=== PATIENT | male | born 1955 | race Caucasian/White ===

== ENCOUNTER 2024-11-23 23:16 | Inpatient (IN) | payer OTHER, MEDICARE ==
[2024-11-23] MEDS ORDERED: ONDANSETRON 4 MG/2 ML VIAL ONE (23:35)
[2024-11-23] MEDS ORDERED: MORPHINE 4 MG/ML SYR ONE (23:36)
[2024-11-23] MEDS ORDERED: HYDROMORPHONE HCL 1 MG/ML INJ ONE (23:49)
[2024-11-23 23:51] LABS: Absolute Lymphocytes (CBC) 3.5 K/uL (0.7-4.9); Hematocrit 45.8 % (39.6-49.0); Hemoglobin 15.0 g/dL (13.6-17.9); MCH 28.7 pg (27.0-35.0); MCHC 32.7 g/dL (32.0-36.0); MCV 87.7 fL (80-100); MPV 7.7 fL (7.6-11.3); Nucleated RBC Absolute Count 0.0 (0-0); Nucleated Red Blood Cells % 0.0 % (0-0); RBC Red Blood Cell Count 5.23 M/uL (4.33-5.43); White Blood Count 11.50 thou/uL (4.3-10.9)
[2024-11-24 00:14] LABS: ALT/SGPT 31.0 U/L (16-61); AST/SGOT 27.0 U/L (15-37); Albumin 3.5 g/dL (3.4-5.0); Albumin/Globulin Ratio 0.8 (1.1-1.8); Alkaline Phosphatase 118.0 U/L (45-117); Anion Gap 7.8 mEq/L (5.0-15.0); BUN Blood Urea Nitrogen 19.0 mg/dL (7-18); Globulin 4.2 g/dL (2.3-3.5); Glucose Level 142.0 mg/dL (74-106); Lipase 81.0 U/L (13-75); Potassium 3.8 mEq/L (3.5-5.1); Troponin High Sensitivity 6.4 pg/mL (<58.9)
--- NOTE | 2024-11-24 00:41 | RAD REPORT ---
EXAM: CT Angiography Chest, Abdomen and Pelvis With Intravenous Contrast CLINICAL HISTORY: The patient is 69 years old and is Male; ABD PAIN; Bed Name: 6; TECHNIQUE: Axial computed tomographic angiography images of the chest, abdomen and pelvis with intr avenous contrast. Sagittal and coronal reformatted images were created and reviewed. This CT exam was performed using one or more of the following dose reduction techniques: automated exposure control, adjustment of the mA and/or kV according to patient size, and/or use of iterative reconstruction technique. MIP reconstructed images were created and reviewed. COMPARISON: CT angiogram chest January 15, 2024 FINDINGS: VASCULATURE: Aorta: No aortic aneurysm or dissection. Mild atherosclerotic plaque of the thoracic aorta. Moder ate atherosclerotic calcification of the infrarenal aorta. Pulmonary arteries: No pulmonary embolism is identified. Great vessels of aortic arch: No acute findings. No dissection. No arterial occlusion or sign ificant stenosis. Celiac trunk and mesenteric arteries: No acute findings. No occlusion or significant stenosis. Renal arteries: No acute findings. No occlusion or significant stenosis. Iliac arteries: No acute findings. No occlusion or significant stenosis. CHEST: Lungs and pleural spaces: Bilateral subpleural reticulation. Mild scattered bronchiectasis. No ho neycombing. No consolidation. No pleural effusion or pneumothorax. Heart: Three-vessel coronary artery calcification. No cardiomegaly. No pericardial effusion. Mediastinum: Small hiatal hernia. ABDOMEN: Liver: No mass. Gallbladder and bile ducts: No calcified stones. No ductal dilation. Pancreas: No mass, inflammation or ductal dilation. Spleen: No splenomegaly. Adrenals: Homogeneous nodule within the right adrenal gland, measuring 7 mm x 12 mm, 31 Hounsfiel d units in density. (7 Hounsfield units on the noncontrast CT from December 2023.) Kidneys and ureters: 3 mm calyceal stone lower pole right kidney. No hydronephrosis. No ureteral stone. No solid mass. Stomach and bowel: Partial gastrectomy. PELVIS: Appendix: Normal appendix. Bladder: Mildly filled urinary bladder. Smudginess of the fat adjacent to the bladder. Reproductive: Within normal limits. CHEST, ABDOMEN and PELVIS: Intraperitoneal space: No abnormal air or fluid. Bones/joints: L2-3 disc space narrowing and endplate subchondral sclerosis and cystic change. Pos terior endplate osteophytes. Bilateral facet arthropathy. Moderate central canal stenosis. Soft tissues: Normal soft tissues of the body wall. IMPRESSION: 1. No aortic aneurysm or dissection. 2. No pulmonary embolism. 3. Three-vessel coronary artery calcification. 4. Pulmonary fibrosis. 5. Small hiatal hernia. 6. Partial gastrectomy. 7. Smudginess of the fat adjacent to the mildly filled urinary bladder. Correlate clinically for cy stitis. 8. L2-3 degenerative disc disease and facet arthropathy. Moderate central canal stenosis. 9. Stable 12 mm right adrenal adenoma. No follow-up imaging recommended. 10. 3 mm calyceal stone lower pole right kidney. No hydronephrosis. No ureteral stone. Electronically signed by: Yolanda Braxton MD 11/24/2024 12:36 AM CDT RP Due to temporary technical issues with the PACS/[employer] reporting system, reports are being mercy d by the in-house radiologist without review as a courtesy to ensure prompt reporting the interpreting radiologist is fully responsible for the content of the report. Transcribed Date/Time: 11/24/2024 12:41 AM
--- NOTE | 2024-11-24 00:51 | EDPHYS ---
Physician Documentation [facility] Name: Ruslan Joaquin Age: 69 yrs Sex: Male : 1955 Arrival Date: 11/23/2024 Time: 23:16 Bed 6 Private MD: ED Physician Luis Reece HPI: 11/23 23:55 This 69 yrs old Male presents to ER via Ambulatory with complaints of Abdominal Pain, kb Back Pain. 23:55 Patient is a 69-year-old male who presents for diffuse abdominal pain that radiates to kb the back that started 2 hours prior to arrival. Reports nausea and vomiting. Denies shortness of breath or chest pain. Patient is diaphoretic and in obvious pain.. Historical: - Allergies: 23:36 No Known Allergies; cp4 - Immunization history:: Adult Immunizations up to date. - Infectious Disease History:: Denies. - Social history:: Smoking status: Patient denies any tobacco usage or history of. ROS: 23:55 Constitutional: As per HPI kb Exam: 23:55 Head/Face: Normocephalic, atraumatic. ENT: Moist Mucous membranes Cardiovascular: kb Regular rate Respiratory: Respirations even and unlabored. No increased work of breathing. Talking in full sentences Skin: Warm, dry with normal turgor. Normal color. MS/ Extremity: Pulses equal, no cyanosis. Neurovascular intact. Full, normal range of motion. Neuro: Awake and alert, GCS 15, oriented to person, place, time, and situation. 23:55 Constitutional: The patient appears alert, awake, diaphoretic, in obvious pain, 23:55 Abdomen/GI: Inspection: obese Bowel sounds: normal, Palpation: soft, in all quadrants, mild abdominal tenderness, in all quadrants, 11/24 00:14 ECG was reviewed by the Attending Physician. kb 01:50 Constitutional: This is a well developed, well nourished patient who is awake, alert, sp4 and in no acute distress. Head/Face: Normocephalic, atraumatic. Eyes: Pupils equal round and reactive to light, extra-ocular motions intact. Lids and lashes normal. Conjunctiva and sclera are not injected. Cornea within normal limits. Periorbital areas with no swelling, redness, or edema. ENT: Nares patent. No nasal discharge, no septal abnormalities noted. Tympanic membranes are normal and external auditory canals are clear. Oropharynx with no redness, swelling, or masses, exudates, or evidence of obstruction, uvula midline. Mucous membranes moist. Neck: Trachea midline, no thyromegaly or masses palpated, and no cervical lymphadenopathy. Supple, full range of motion without nuchal rigidity, or vertebral point tenderness. Chest/axilla: Normal chest wall appearance and motion. Nontender with no deformity. No lesions are appreciated. Cardiovascular: Regular rate and rhythm with a normal S1 and S2. No gallops, murmurs, or rubs. No pulse deficits. Respiratory: Lungs have equal breath sounds bilaterally, clear to auscultation and percussion. No rales, rhonchi or wheezes noted. No increased work of breathing, no retractions or nasal flaring. Abdomen/GI: Soft, with normal bowel sounds. No distension or tympany. No guarding or rebound. No evidence of tenderness throughout. Back: No spinal tenderness. No costovertebral tenderness. Skin: Warm, dry with normal turgor. Normal color with no rashes, no lesions, and no evidence of cellulitis. MS/ Extremity: Pulses equal, no cyanosis. Neurovascular intact. Full, normal range of motion. Neuro: Awake and alert, GCS 15, oriented to person, place, time, and situation. Cranial nerves II-XII grossly intact. Motor strength 5/5 in all extremities. Sensory grossly intact. Psych: Awake, alert, with orientation to person, place and time. Behavior, mood, and affect are within normal limits 01:50 ECG was reviewed by the Attending Physician. Will repeat EKG 0 138 normal sinus rhythm rate 77, normal intervals, no ST elevation or depression, no axis, no ectopic beats, overall normal EKG. Normal axis Vital Signs: 11/23 23:33 BP 182 / 110; Pulse 84; Resp 20; Temp 97.4; Pulse Ox 99% ; Weight 127.01 kg; Height 6 cp4 ft. 0 in. ; Pain 10/10; 23:47 BP 158 / 87; Pulse 80; Resp 20; Pulse Ox 100% on R/A; kd3 11/24 00:24 BP 146 / 73; Pulse 79; Resp 18; Pulse Ox 98% on R/A; kd3 01:30 BP 162 / 96; Pulse 81; Resp 18; Pulse Ox 95% ; zm 02:30 BP 168 / 94; Pulse 78; Resp 18; Pulse Ox 99% ; zm 03:30 BP 159 / 87; Pulse 74; Resp 18; Pulse Ox 98% ; zm 04:49 BP 171 / 96; Pulse 78; Resp 18; Pulse Ox 98% ; cp4 11/23 23:33 Body Mass Index 37.97 (127.01 kg, 182.88 cm) cp4 11/23 23:33 Pain Scale: Adult cp4 [place] Coma Score: 01:50 Eye Response: spontaneous(4). Motor Response: obeys commands(6). Verbal Response: sp4 oriented(5). Total: 15. MDM: 11/23 23:18 Medical Screening Exam initiated kb 23:56 Data reviewed: vital signs, nurses notes. Historians other than the Patient: nikole Spouse/Significant Other: . 11/24 00:48 Differential diagnosis: AAA, cholecystitis, Cholelithiasis, myocardia ischemia or kb infarction, non-specific abd pain, pancreatitis, Ureterolithiasis, urinary tract infection. Consideration of Admission/Observation Patient was admitted/placed on observation. Escalation of care including admission/observation considered. Management of patient was discussed with the following: Hospitalist: JANAK Benitez requests CT head prior to admission. Counseling: I had a detailed discussion with the patient and/or guardian regarding the historical points, exam findings, and any diagnostic results supporting the discharge/admit diagnosis, lab results, radiology results, the need for further work-up and treatment in the hospital. ED course: Will admit for observation due to pt's presentation. Pt's symptoms have improved after treatment. . ED course: Dr Reece to review CT head and UA prior to admission. 01:29 ED course: FINDINGS: VASCULATURE: Aorta: No aortic aneurysm or dissection. Mild sp4 atherosclerotic plaque of the thoracic aorta. Moderate atherosclerotic calcification of the infrarenal aorta. Pulmonary arteries: No pulmonary embolism is identified. Great vessels of aortic arch: No acute findings. No dissection. No arterial occlusion or significant stenosis. Celiac trunk and mesenteric arteries: No acute findings. No occlusion or significant stenosis. Renal arteries: No acute findings. No occlusion or significant stenosis. Iliac arteries: No acute findings. No occlusion or significant stenosis. CHEST: Lungs and pleural spaces: Bilateral subpleural reticulation. Mild scattered bronchiectasis. No honeycombing. No consolidation. No pleural effusion or pneumothorax. Heart: Three-vessel coronary artery calcification. No cardiomegaly. No pericardial effusion. Mediastinum: Small hiatal hernia. ABDOMEN: Liver: No mass. Gallbladder and bile ducts: No calcified stones. No ductal dilation. Pancreas: No mass, inflammation or ductal dilation. Spleen: No splenomegaly. Adrenals: Homogeneous nodule within the right adrenal gland, measuring 7 mm x 12 mm, 31 Hounsfield units in density. (7 Hounsfield units on the noncontrast CT from December 2023.) Kidneys and ureters: 3 mm calyceal stone lower pole right kidney. No hydronephrosis. No ureteral stone. No solid mass. Stomach and bowel: Partial gastrectomy. PELVIS: Appendix: Normal appendix. Bladder: Mildly filled urinary bladder. Smudginess of the fat adjacent to the bladder. Reproductive: Within normal limits. CHEST, ABDOMEN and PELVIS: Intraperitoneal space: No abnormal air or fluid. Bones/joints: L2-3 disc space narrowing and endplate subchondral sclerosis and cystic change. Posterior endplate osteophytes. Bilateral facet arthropathy. Moderate central canal stenosis. Soft tissues: Normal soft tissues of the body wall. IMPRESSION: 1. No aortic aneurysm or dissection. 2. No pulmonary embolism. 3. Three-vessel coronary artery calcification. 4. Pulmonary fibrosis. 5. Small hiatal hernia. 6. Partial gastrectomy. 7. Smudginess of the fat adjacent to the mildly filled urinary bladder. Correlate clinically for cystitis. 8. L2-3 degenerative disc disease and facet arthropathy. Moderate central canal stenosis. 9. Stable 12 mm right adrenal adenoma. No follow-up imaging recommended. 10. 3 mm calyceal stone lower pole right kidney. No hydronephrosis. No ureteral stone. . 02:45 ED course: FINDINGS: Generalized parenchymal volume loss. No hydrocephalus. No midline sp4 shift. The basal cisterns are patent. No abnormal extra axial collection. No acute intracranial hemorrhage or developing territorial infarct. Preserved storey-white differentiation. Scattered chronic microangiopathic ischemic white matter changes. Orbital contents are unremarkable. Small left maxillary sinus air fluid level. The mastoid air cells are well pneumatized. No acute calvarial abnormality. IMPRESSION: 1. No acute intracranial pathology. 2. Small left maxillary sinus air fluid level. Correlate for acute sinusitis. Electronically signed by: Jt Menon MD 11/24/2024 02:42 AM CDT RP. 11/23 23:34 Order name: CBC with Diff; Complete Time: 00:01 kb 11/23 23:34 Order name: CMP; Complete Time: 00:28 kb 11/23 23:34 Order name: Lipase; Complete Time: 00:28 kb 11/23 23:34 Order name: Troponin HS; Complete Time: 00:28 kb 11/23 23:58 Order name: CREATININE WHOLE BLOOD; Complete Time: 00:01 EDMS 11/24 00:40 Order name: UA Rfx Evan Cult if indicated; Complete Time: 01:27 kb 11/24 01:18 Order name: Troponin High Sensitivity; Complete Time: 02:43 kd3 11/24 01:37 Order name: Lipase; Complete Time: 02:43 sp4 11/24 01:37 Order name: Lactate w/ 2H reflex if indic.; Complete Time: 02:43 sp4 11/24 03:53 Order name: Troponin High Sensitivity EDMS 11/24 03:53 Order name: CBC with Automated Diff EDMS 11/24 03:53 Order name: CBC with Automated Diff EDMS 11/24 03:53 Order name: Comprehensive Metabolic Panel EDMS 11/24 03:53 Order name: Comprehensive Metabolic Panel EDMS 11/24 03:53 Order name: Magnesium EDMS 11/24 03:53 Order name: Magnesium EDMS 11/24 03:54 Order name: Lipase EDMS 11/24 03:54 Order name: Lipase EDMS 11/23 23:34 Order name: CT Aorta for Dissection kb 11/24 00:47 Order name: CT Head Brain wo Cont kb 11/23 23:34 Order name: IV Saline Lock; Complete Time: 23:44 kb 11/23 23:34 Order name: Labs collected and sent; Complete Time: 23:44 kb 11/23 23:34 Order name: Cardiac monitoring; Complete Time: 00:11 kb 11/23 23:34 Order name: EKG - Nurse/Tech; Complete Time: 00:11 kb 11/23 23:34 Order name: O2 Per Protocol; Complete Time: 23:44 kb 11/23 23:34 Order name: O2 Sat Monitoring; Complete Time: 23:44 kb 11/24 01:18 Order name: EKG - Nurse/Tech; Complete Time: 01:37 kd3 EC:14 Rate is 81 beats/min. Rhythm is regular. QRS [place] is Normal. [place] interval is prolonged kb at 208 msec. QRS interval is normal at 110 msec. QT interval is normal at 450 msec. Administered Medications: 11/23 23:44 Drug: Ondansetron IVP 4 mg IVP once; over 2 minutes Route: IVP; Site: left antecubital; kd3 11/24 03:02 Follow up: Response: No adverse reaction zm 11/23 23:44 Drug: morphine IVP or IV 4 mg IVP once over 4 mins Route: IVP; Infused Over: 4 mins; kd3 Site: left antecubital; 11/24 03:02 Follow up: Response: No adverse reaction zm 11/23 23:52 Drug: HYDROmorphone IVP 1 mg IVP once Route: IVP; Site: left antecubital; kd3 11/24 03:02 Follow up: Response: No adverse reaction; Pain is decreased zm 01:37 Drug: HYDROmorphone IVP 1 mg IVP once Route: IVP; Site: left antecubital; kd3 03:00 Follow up: Response: No adverse reaction; Pain is decreased cp4 03:01 Follow up: Response: No adverse reaction; Pain is decreased zm 02:56 Drug: metoCLOPramide IVP 10 mg IVP once; over 1 to 2 minutes Route: IVP; Site: left cp4 antecubital; 03:01 Follow up: Response: No adverse reaction zm 03:44 Drug: HYDROmorphone IVP 1 mg IVP once Route: IVP; Site: left antecubital; cp4 04:02 Follow up: Response: No adverse reaction; Pain is decreased cp4 03:44 Drug: Ondansetron IVP 4 mg IVP once; over 2 minutes Route: IVP; Site: left antecubital; cp4 04:03 Follow up: Response: No adverse reaction; Nausea is decreased cp4 Disposition: 02:50 Co-signature as Attending Physician, Luis Reece MD I agree with the assessment sp4 and plan of care. I reviewed the patient's care provided by Advanced Practice Provider \T\ agree w/ the diagnosis \T\ care plan. I personally saw the pt \T\ performed a substantive portion of the visit, incldng all aspects of the (History/Exam/Medical Decision Making). Disposition Summary: 11/24/24 00:50 Hospitalization Ordered Notes: Hospitalization Status: Observation kb Provider: Curtis Mendez Location: Telemetry/MedSurg (observation) kb Condition: Stable kb Problem: new kb Symptoms: are unchanged kb Bed/Room Type: Standard Room Assignment: 431(11/24/24 03:53) rv1 Diagnosis - Abdominal pain, Generalized kb - Acute pelvic pain, acute abdominal and back pain, acute diaphoresis, near syncopal sp4 episode Forms: - Medication Reconciliation Form kb - SBAR form kb - Leadership Thank You Letter kb Signatures: Dispatcher [employer] EDLA Ayde Urrutia, ABBI-C ABBI-Tamiko Renae RN RN kd3 Carmella Barroso rv1 Luis Reece MD MD sp4 Mariam Landrum Zaina RN zm Corrections: (The following items were deleted from the chart) 11/23 23:34 23:34 Angio Aorta For Dissection+CT.RAD.BRZ ordered. EDLA EDLA 11/24 03:53 00:50 kb rv1
--- NOTE | 2024-11-24 00:51 | ER ---
Nurse's Notes [facility] Name: Ruslan Joaquin Age: 69 yrs Sex: Male : 1955 Arrival Date: 11/23/2024 Time: 23:16 Bed 6 Private MD: Diagnosis: Abdominal pain, Generalized;Acute pelvic pain, acute abdominal and back pain, acute diaphoresis, near syncopal episode Presentation: 11/23 23:33 Chief complaint: Patient states: lower abdominal and back pain that started 2 hours cp4 ago. Reports nausea and vomiting. Coronavirus screen: Vaccine status: Patient reports receiving the 2nd dose of the covid vaccine. Client denies travel out of the [place] in the last 14 days. At this time, the client does not indicate any symptoms associated with coronavirus-19. Ebola Screen: Patient negative for fever greater than or equal to 101.5 degrees Fahrenheit, and additional compatible Ebola Virus Disease symptoms Patient denies exposure to infectious person. Patient denies travel to an Ebola-affected area in the 21 days before illness onset. No symptoms or risks identified at this time. Initial Sepsis Screen: Does the patient meet any 2 criteria? No. Patient's initial sepsis screen is negative. Does the patient have a suspected source of infection? No. Patient's initial sepsis screen is negative. Risk Assessment: Do you want to hurt yourself or someone else? Patient reports no desire to harm self or others. Onset of symptoms was November 23, 2024 at 21:30. 23:33 Method Of Arrival: Ambulatory cp4 23:33 Acuity: MINDY 2 cp4 Triage Assessment: 23:36 General: Appears in no apparent distress. uncomfortable, Behavior is calm, cooperative, cp4 appropriate for age. Pain: Complains of pain in back and abdomen Pain does not radiate. Pain currently is 10 out of 10 on a pain scale. GI: Abdomen is round Bowel sounds present X 4 quads. Abdomen is tender to palpation X 4 quads. Reports nausea, vomiting. Historical: - Allergies: 23:36 No Known Allergies; cp4 - Immunization history:: Adult Immunizations up to date. - Infectious Disease History:: Denies. - Social history:: Smoking status: Patient denies any tobacco usage or history of. Screenin/29 00:23 [facility] ED Fall Risk Assessment (Adult) History of falling in the last 3 months, kd3 including since admission No falls in past 3 months (0 pts) Confusion or Disorientation No (0 pts) Intoxicated or Sedated No (0 pts) Impaired Gait No (0 pts) Mobility Assist Device Used No (0 pt) Altered Elimination No (0 pt) Score/Fall Risk Level 0 - 2 = Low Risk Maintained a safe environment. Abuse screen: Denies threats or abuse. Denies injuries from another. Nutritional screening: No deficits noted. Tuberculosis screening: No symptoms or risk factors identified. Assessment: 00:22 General: Appears in no apparent distress. Behavior is calm, cooperative. Pain: kd3 Complains of pain in abdomen and back Pain currently is 3 out of 10 on a pain scale. Neuro: Level of Consciousness is awake, alert, obeys commands, Oriented to person, place, time, situation. Cardiovascular: Capillary refill < 3 seconds Patient's skin is warm and dry. Respiratory: Airway is patent Trachea midline Respiratory effort is even, unlabored, Respiratory pattern is regular, symmetrical. Vital Signs: 11/23 23:33 BP 182 / 110; Pulse 84; Resp 20; Temp 97.4; Pulse Ox 99% ; Weight 127.01 kg; Height 6 cp4 ft. 0 in. ; Pain 10/10; 23:47 BP 158 / 87; Pulse 80; Resp 20; Pulse Ox 100% on R/A; kd3 11/24 00:24 BP 146 / 73; Pulse 79; Resp 18; Pulse Ox 98% on R/A; kd3 01:30 BP 162 / 96; Pulse 81; Resp 18; Pulse Ox 95% ; zm 02:30 BP 168 / 94; Pulse 78; Resp 18; Pulse Ox 99% ; zm 03:30 BP 159 / 87; Pulse 74; Resp 18; Pulse Ox 98% ; zm 04:49 BP 171 / 96; Pulse 78; Resp 18; Pulse Ox 98% ; cp4 11/23 23:33 Body Mass Index 37.97 (127.01 kg, 182.88 cm) cp4 11/23 23:33 Pain Scale: Adult cp4 [place] Coma Score: 01:50 Eye Response: spontaneous(4). Motor Response: obeys commands(6). Verbal Response: sp4 oriented(5). Total: 15. ED Course: 11/23 23:18 Patient arrived in ED. mr 23:18 Ayde Urrutia FNP-C is [facility]. kb 23:18 Luis Reece MD is Attending Physician. kb 23:30 Tamiko Avila, ALHAJI is Primary Nurse. kd3 23:35 Triage completed. cp4 23:36 Arm band placed on right wrist. Patient placed in waiting room. cp4 23:44 Inserted saline lock: 20 gauge in left antecubital area, using aseptic technique. Blood kd3 collected. Flushed with 10 mL NS. 23:44 CBC with Diff Sent. kd3 23:44 CMP Sent. kd3 23:44 Lipase Sent. kd3 23:44 Troponin HS Sent. kd3 11/24 00:14 CT Aorta for Dissection In Process Unspecified. EDMS 00:14 EKG done, by ED staff, reviewed by Ayde MONZON. oe 00:24 Patient has correct armband on for positive identification. Provided Education on: CT kd3 scan . 00:24 No provider procedures requiring assistance completed. kd3 00:50 Curtis Mendez MD is Hospitalizing Provider. kb 00:57 UA Rfx Evan Cult if indicated Sent. kd3 01:21 CT Head Brain wo Cont In Process Unspecified. EDMS 04:51 Patient admitted, IV remains in place. cp4 Administered Medications: 11/23 23:44 Drug: Ondansetron IVP 4 mg IVP once; over 2 minutes Route: IVP; Site: left antecubital; kd3 11/24 03:02 Follow up: Response: No adverse reaction zm 11/23 23:44 Drug: morphine IVP or IV 4 mg IVP once over 4 mins Route: IVP; Infused Over: 4 mins; kd3 Site: left antecubital; 11/24 03:02 Follow up: Response: No adverse reaction zm 11/23 23:52 Drug: HYDROmorphone IVP 1 mg IVP once Route: IVP; Site: left antecubital; kd3 11/24 03:02 Follow up: Response: No adverse reaction; Pain is decreased 01:37 Drug: HYDROmorphone IVP 1 mg IVP once Route: IVP; Site: left antecubital; kd3 03:00 Follow up: Response: No adverse reaction; Pain is decreased cp4 03:01 Follow up: Response: No adverse reaction; Pain is decreased zm 02:56 Drug: metoCLOPramide IVP 10 mg IVP once; over 1 to 2 minutes Route: IVP; Site: left cp4 antecubital; 03:01 Follow up: Response: No adverse reaction zm 03:44 Drug: HYDROmorphone IVP 1 mg IVP once Route: IVP; Site: left antecubital; cp4 04:02 Follow up: Response: No adverse reaction; Pain is decreased cp4 03:44 Drug: Ondansetron IVP 4 mg IVP once; over 2 minutes Route: IVP; Site: left antecubital; cp4 04:03 Follow up: Response: No adverse reaction; Nausea is decreased cp4 Medication: 00:24 VIS not applicable for this client. kd3 Outcome: 00:50 Decision to Hospitalize by Provider. kb 04:51 Admitted to Med/surg accompanied by tech, via stretcher, room 431, with chart, cp4 04:51 Condition: stable 04:51 Instructed on the need for admit, 04:52 Patient left the ED. cp4 Signatures: Dispatcher [employer] EDMS Ayde Urrutia, DIRECTOR TELEVISION NEWS-C DIRECTOR TELEVISION NEWS-Ckb Diana Carbone, Reg Reg mr Kervin Ross Kyli, RN RN kd3 Keren Gallagher, Mariam Bañuelos RN cp4
[2024-11-24 01:08] LABS: Sqamous Epithelial None Seen /HPF (None Seen); Urine Culture Reflex Order NOT NEEDED; Urine Microscopic Reflex YN ORDER UMIC
[2024-11-24] MEDS ORDERED: HYDROMORPHONE HCL 1 MG/ML INJ ONE ×2 (01:28→03:40)
[2024-11-24] MEDS ORDERED: NA CHLORIDE 0.9% 1,000 ML ONE (01:32)
[2024-11-24] MEDS ORDERED: METOCLOPRAMIDE 10 MG/2mL INJ ONE (02:54)
[2024-11-24] MEDS ORDERED: ONDANSETRON 4 MG/2 ML VIAL ONE (03:40)
--- NOTE | 2024-11-24 04:07 | P.HP ---
Certification for Inpatient Patient admitted to: Observation With expected LOS: <2 Midnights Patient will require the following post-hospital care: None Practitioner: I am a practitioner with admitting privileges, knowledge of patient current condition, hospital course, and medical plan of care. Services: Services provided to patient in accordance with Admission requirements found in Title 42 Section 412.3 of the Code of Federal Regulations <Brian Benitez - Last Filed: 11/24/24 04:50> Patient History Date of Service: 11/24/24 Reason for admission: Abdominal pain radiating to lower back. History of Present Illness: Patient is a pleasant 69-year-old male with past medical history of CAD, myocardial infarction, post triple bypass , CHF. Patient presents to the ER today complaining of worsening lower abdominal pain, radiating to his lower back with associated nausea and vomiting nonbilious and nonbloody content. Patient states he and the went to the store and got ice cream cone, states after eating ice cream few minutes after he developed severe lower abdomen pain radiating to his lower back, patient describes the pain as dull pain but constant, states the pain was so severe and excruciating with a pain scale of 10/10, none aggravating factor. Patient states patient immediately request ed for him to be brought to the ER, she states when driving the to the ER, patient became severely diaphoretic, with no associated chest pain, shortness of breath, headaches, blurred vision. On admission assessment, patient was fully awake, alert and oriented x 3, still endorses abdominal pain, but denies of nausea or vomiting at this time, denies of chest pain, shortness of breath, or headaches. Course in the ER. (1) CT angiogram chest, abdomen, and pelvis with intravenous contrast. Impression: No aortic aneurysm or dissection. No pulmonary embolism. Three-vessel coronary artery calcification. Pulmonary fibrosis. Small hiatal hernia. Partial gastrectomy. Smudginess of the fat adjacent to the mildly filled urinary bladder. Correlate clinically for cystitis. L2-3 degenerative disc disease and facet arthropathy. Moderate central canal stenosis. Stable 12 mm right adrenal adenoma. No follow-up imaging recommended. 3 mm calyceal stone lower pole right kidney. No hydronephrosis no ureteral stone. (2) CT head impression still pending at this time. Home medications list reviewed: No - Past Medical/Surgical History -: CAD. -: Renal calculi. -: Myocardial infarction. -: CHF. -: Triple bypass . - Family History Family History: Reviewed- Non-Contributory - Social History Smoking Status: Former smoker Alcohol use: Yes CD- Drugs: No Caffeine use: No Place of Residence: Home <Brian Benitez - Last Filed: 11/24/24 04:50> Date of Service: 11/24/24 <Eduardo Colemanzal - Last Filed: 12/01/24 00:35> Review of Systems 10-point ROS is otherwise unremarkable Gastrointestinal: Nausea, Vomiting, Abdominal Pain <Brian Benietz - Last Filed: 11/24/24 04:50> Physical Examination - Physical Exam General: Alert, In no apparent distress, Oriented x3, Cooperative HEENT: Atraumatic, Normocephalic, PERRLA, Mucous membr. moist/pink, Sclerae nonicteric Neck: Supple, 2+ carotid pulse no bruit, No LAD, Without JVD or thyroid abnormality Respiratory: Clear to auscultation bilaterally, Normal air movement Cardiovascular: No edema, Normal pulses, Regular rate/rhythm, Normal S1 S2, Abnormal S3, No gallops, No rubs, No murmurs Capillary refill: <2 Seconds Gastrointestinal: Normal bowel sounds, Soft and benign, Non-distended, W/out hepatomegaly, No ascites, No masses, No rebound, No guarding, Other (Nausea and vomiting.), Tenderness Musculoskeletal: No clubbing, No swelling, No contractures, No erythema, No tenderness, No warmth Integumentary: No rashes, No breakdown, No significant lesion, No tenderness/swelling, No erythema, No warmth, No cyanosis Neurological: Normal gait, Normal speech, Normal strength at 5/5 x4 extr, Normal tone, Sensation intact, Cranial nerves 3-12 intact, Normal reflexes 2+, Normal affect Lymphatics: No axilla or inguinal lymphadenopathy - Studies Laboratory Data (last 24 hrs) 11/24/24 11/23/24 11/23/24 01:42 23:44 23:44 WBC 11.50 H Hgb 15.0 Hct 45.8 Plt Count 339 Sodium 139 Potassium 3.8 BUN 19 H Creatinine 1.35 H Glucose 142 H Total Bilirubin 0.5 AST 27 ALT 31 Alkaline Phosphatase 118 H Lipase 58 81 H <Brian Benitez - Last Filed: 11/24/24 04:50> Male Exam - Male Exam Inguinal exam: No hernias, Inguinal lymph node <Brian Benitez - Last Filed: 11/24/24 04:50> Assessment and Plan - Plan Patient is a 69-year-old male who reports to ER complaining of worsening lower abdominal pain radiating to his back associated with nausea and vomiting nonbilious and nonbloody content. (1)Lower abdominal pain, and lower back pain/nausea vomiting/CAMILA.. -Dilaudid 1 mg IV as needed every 4 hours. Patient states the pain is so severe and excruciating when it comes on, states morphine does not help with his pain relief. -1/2 NS at 75 mL/ hr. -Zofran 4 mg IV as needed every 4 hours. -Repeat lipase and troponin at 11 AM in the morning. -Patient admitted to observation, will continue to monitor for the night and in the morning and possible discharge tomorrow based on patient condition.. (2) DVT prophylaxis. -Heparin 5K units SQ every 8 hours. (3)To resume home medications when reconciled. (4)Explained the entire treatment plan to the patient, and present at the bedside, solicited questions answered and voiced understanding. Discharge Plan: Home Plan to discharge in: 48 Hours - Advance Directives Does patient have a Living Will: No Does patient have a Durable POA for Healthcare: No - Code Status/Comfort Care Code Status Assessed: Yes Code Status: Full Code Critical Care: No Time Spent Managing Pts Care (In Minutes): 55 <KeatonbobbiBrian - Last Filed: 11/24/24 04:50> Date of Service: 11/24/24 Patient was seen and examined. Events of the last 24 hours have been noted. Spoke with with ADILSON regarding patient's clinical picture after evaluating and examining the patient independently. I performed a substantial part of the MDM during this patient's care today. I personally made or approved the documented management plan and acknowledge its risk of complications. I agree with the findings and documentation provided in the ADILSON's notes. <Eduardo Coleman - Last Filed: 12/01/24 00:35>
[2024-11-24 05:00] VITALS: BMI 38.5
--- NOTE | 2024-11-24 05:30 | RAD REPORT ---
EXAM: Head Brain Wo Cont HISTORY: 69 years Male pain. COMPARISON: None. TECHNIQUE: Contiguous axial images of the head were obtained from the skull base through the vertex without IV c ontrast followed by multiplanar reformats. This exam was performed according to our departmental dose-optimization program, which includes automated exposure control, adjustment of the mA and/or kV according to patient size and/or use of iterative reconstruction technique. FINDINGS: Generalized parenchymal volume loss. No hydrocephalus. No midline shift. The basal cisterns are paten t. No abnormal extra axial collection. No acute intracranial hemorrhage or developing territorial infarct. Preserved storey-white differentiation. Scattered chronic microangiopathic ischemic white severino er changes. Orbital contents are unremarkable. Small left maxillary sinus air fluid level. The mastoid air cells are well pneumatized. No acute calvarial abnormality. IMPRESSION: 1. No acute intracranial pathology. 2. Small left maxillary sinus air fluid level. Correlate for acute sinusitis. Electronically signed by: Jt Menon MD 11/24/2024 02:42 AM CDT RP Due to temporary technical issues with the PACS/[employer] reporting system, reports are being mercy d by the in-house radiologist without review as a courtesy to ensure prompt reporting the interpreting radiologist is fully responsible for the content of the report. Transcribed Date/Time: 11/24/2024 5:30 AM
[2024-11-24] MEDS: NACHLORIDE 0.45% 1,000 ML IV SCH (05:35)
[2024-11-24] MEDS: PROMETHAZINE INJ 25 MG/ML AMP IM ONE (05:50)
[2024-11-24] MEDS: HEPARIN 5000 UNIT/ML 1 ML VIAL SQ SCH (08:25)
[2024-11-24] MEDS: HYDROMORPHONE HCL 1 MG/ML INJ IV PRN (08:25)
[2024-11-24 11:10] LABS: Absolute Lymphocytes (CBC) 0.8 K/uL (0.7-4.9); Hematocrit 45.7 % (39.6-49.0); Hemoglobin 14.8 g/dL (13.6-17.9); MCH 28.8 pg (27.0-35.0); MCHC 32.5 g/dL (32.0-36.0); MCV 88.8 fL (80-100); MPV 7.6 fL (7.6-11.3); Nucleated RBC Absolute Count 0.0 (0-0); Nucleated Red Blood Cells % 0.0 % (0-0); RBC Red Blood Cell Count 5.15 M/uL (4.33-5.43); White Blood Count 20.60 thou/uL (4.3-10.9)
[2024-11-24 11:30] LABS: Lipase 39.0 U/L (13-75); Magnesium 2.2 mg/dL (1.6-2.4); Troponin High Sensitivity 11.2 pg/mL (<58.9)
[2024-11-24 11:53] LABS: Blood Morphology Comment NOT SEEN (NOT SEEN); Differential Total Cells Count 100; Segmented Neutrophils 91 % (40-80)
[2024-11-24] MEDS: ONDANSETRON 4 MG/2 ML VIAL IV PRN (12:32)
[2024-11-24] MEDS: PIPER TAZO 3.375 GM in NA CHLORIDE 0.9% 100 ML IV SCH (16:46)
[2024-11-25 05:58] LABS: Absolute Lymphocytes (CBC) 1.5 K/uL (0.7-4.9); Hematocrit 41.2 % (39.6-49.0); Hemoglobin 13.5 g/dL (13.6-17.9); MCH 28.9 pg (27.0-35.0); MCHC 32.8 g/dL (32.0-36.0); MCV 88.2 fL (80-100); MPV 7.7 fL (7.6-11.3); Nucleated RBC Absolute Count 0.0 (0-0); Nucleated Red Blood Cells % 0.0 % (0-0); RBC Red Blood Cell Count 4.67 M/uL (4.33-5.43); White Blood Count 16.10 thou/uL (4.3-10.9)
[2024-11-25 06:15] LABS: ALT/SGPT 22.0 U/L (16-61); AST/SGOT 14.0 U/L (15-37); Albumin 2.9 g/dL (3.4-5.0); Albumin/Globulin Ratio 0.8 (1.1-1.8); Alkaline Phosphatase 78.0 U/L (45-117); Anion Gap 8.2 mEq/L (5.0-15.0); BUN Blood Urea Nitrogen 10.0 mg/dL (7-18); Globulin 3.5 g/dL (2.3-3.5); Glucose Level 128.0 mg/dL (74-106); Lipase 20.0 U/L (13-75); Potassium 4.2 mEq/L (3.5-5.1)
--- NOTE | 2024-11-25 09:15 | RAD REPORT ---
EXAM: Abdominal exam Limited ultrasound CLINICAL HISTORY: Abdominal pain COMPARISON: November 23, 2018 FINDINGS: A gallstone is not seen. Period small to moderate amount of gallbladder sludge. Gallbladder wall measures 4 mm. Biliary tree normal caliber IMPRESSION: Mildly thickened gallbladder wall may be secondary to hypoalbuminemia or acalculous cholecystitis Mild to moderate the left sludge
--- NOTE | 2024-11-25 12:26 | RAD REPORT ---
EXAMINATION: MR CHOLANGIOGRAM CLINICAL INDICATION: Abdominal pain TECHNIQUE: Magnetic resonance cholangiopancreatogram was performed. 3D MIP reconstruction done. COMPARISON: November 23, 2024 CT and November 25, 2024 ultrasound FINDINGS: The gallbladder wall is mildly thickened. A filling defect within the gallbladder is not seen. Biliary tree is normal caliber. A filling defect is not seen. Pancreatic duct contains a couple of short segment strictures. The duct is not dilated. IMPRESSION: Mildly thickened gallbladder wall may indicate cholecystitis, hypoalbuminemia or be related to pancre atitis Biliary tree unremarkable Several short segment strictures pancreatic duct
[2024-11-25 12:48] LABS: ALT/SGPT 23.0 U/L (16-61); AST/SGOT 14.0 U/L (15-37); Albumin 3.2 g/dL (3.4-5.0); Albumin/Globulin Ratio 0.9 (1.1-1.8); Alkaline Phosphatase 83.0 U/L (45-117); Anion Gap 7.0 mEq/L (5.0-15.0); BUN Blood Urea Nitrogen 11.0 mg/dL (7-18); Globulin 3.6 g/dL (2.3-3.5); Glucose Level 120.0 mg/dL (74-106); Potassium 4.0 mEq/L (3.5-5.1)
[2024-11-26] MEDS ORDERED: POLYETHYL GLY 3350 17 GM/DOSE PO PRN (07:42)
[2024-11-26] MEDS: DOCUSATE NA 100 MG CAP PO SCH (08:03)
--- NOTE | 2024-11-26 10:11 | P.PN ---
Date of Service: 11/25/24 Subjective Pt imaging studies indicative of acute cholecystitis; MRCP mention pancreatic strictures; however, lipase WNL; most probably related to pancreatitis Physical Examination - Vitals reviewed - Physical Exam General: Alert, In no apparent distress, Oriented x3, Cooperative Respiratory: Clear to auscultation bilaterally, Normal air movement Cardiovascular: No edema, Normal pulses, Regular rate/rhythm, Normal S1 S2 Gastrointestinal: Normal bowel sounds, Soft and benign, Non-distended Tenderness Musculoskeletal: No erythema, No tenderness, No warmth Integumentary: No rashes, No breakdown, No significant lesion Neurological: no focal deficits Assessment and Plan - Plan Patient is a 69-year-old male who reports to ER complaining of worsening lower abdominal pain radiating to his back associated with nausea and vomiting nonbilious and nonbloody content. (1) Acute cholecystitis; continue with IV abx; surgery consulted. Pain control. NPO after midnight. MRCP with no evidence of choledocholithiasis; pancreatic stricutres were questionable but likely overread; will get GI input. Lioase WNL the whole admission. (2) Metabolic syndrome; with weight loss; monjauro; increased risk of Gallstones. (3) GI/DVT prophylaxis Discharge Plan: Home Plan to discharge in: 48 Hours - Advance Directives Does patient have a Living Will: No Does patient have a Durable POA for Healthcare: No - Code Status/Comfort Care Code Status Assessed: Yes Code Status: Full Code Critical Care: No Time Spent Managing Pts Care (In Minutes): 30
[2024-11-26 11:26] LABS: Absolute Lymphocytes (CBC) 0.9 K/uL (0.7-4.9); Hematocrit 39.3 % (39.6-49.0); Hemoglobin 12.7 g/dL (13.6-17.9); MCH 28.5 pg (27.0-35.0); MCHC 32.4 g/dL (32.0-36.0); MCV 88.0 fL (80-100); MPV 7.7 fL (7.6-11.3); Nucleated RBC Absolute Count 0.0 (0-0); Nucleated Red Blood Cells % 0.0 % (0-0); RBC Red Blood Cell Count 4.47 M/uL (4.33-5.43); White Blood Count 16.10 thou/uL (4.3-10.9)
[2024-11-26 11:37] LABS: PT Prothrombin Time 14.8 SECONDS (10-13.0); PTT, Activated Partial Thromb 29.4 SECONDS (27.2-37.4); Protime INR 1.32
[2024-11-26 11:46] LABS: ALT/SGPT 25.0 U/L (16-61); AST/SGOT 19.0 U/L (15-37); Albumin 2.7 g/dL (3.4-5.0); Albumin/Globulin Ratio 0.7 (1.1-1.8); Alkaline Phosphatase 78.0 U/L (45-117); Anion Gap 9.0 mEq/L (5.0-15.0); BUN Blood Urea Nitrogen 8.0 mg/dL (7-18); Globulin 3.7 g/dL (2.3-3.5); Glucose Level 119.0 mg/dL (74-106); Magnesium 1.9 mg/dL (1.6-2.4); Potassium 4.0 mEq/L (3.5-5.1)
[2024-11-26] MEDS: MIDAZOLAM HCL 2 MG/2 ML INJ ONE (13:04)
[2024-11-26] MEDS: Ringers Lactate 1,000 ML IV ONE (13:05)
[2024-11-26] MEDS ORDERED: ROCURONIUM 50 MG/5 ML VIAL IV ONE (13:11)
[2024-11-26] MEDS ORDERED: FENTANYL CITR 100 MCG/2 ML ONE (13:11)
[2024-11-26] MEDS ORDERED: ONDANSETRON 4 MG/2 ML VIAL ONE (13:11)
[2024-11-26] MEDS ORDERED: LIDOCAINE 2% MPF 5 ML VIAL ONE (13:11)
[2024-11-26] MEDS: LIDOCAINE HCL/EPINEPHRINE 20 ML MDV ONE (13:40)
[2024-11-26] MEDS ORDERED: NEOSTIGMINE 1 MG/ML -10 ML VIAL ONE (14:38)
[2024-11-26] MEDS ORDERED: GLYCOPYRROLATE 0.2 MG/ML SYR ONE (14:38)
--- NOTE | 2024-11-26 14:45 | P.OP ---
Preoperative diagnosis: Acute Cholecystitis Postoperative diagnosis: Acute Gangrenous Cholecystitis Primary procedure: Laparoscopic Cholecystectomy with ICG Cholangiography Anesthesia: GETA + Local Estimated blood loss: <20cc Specimen: Gallbladder Findings: Gangrenous, Encased Gallbladder, Severe inflammatory rind, thick cystic tiera Complications: None Drain(s): KELVIN drain (10mm Flat KELVIN) Implants: Thanh Hemostatic Powder Transferred to: Recovery Room Condition: Good
[2024-11-26 15:45] VITALS: O2SAT 95
[2024-11-26] MEDS: HYDRALAZINE HCL 20 MG/ML VIAL IV PRN (16:34)
--- NOTE | 2024-11-26 17:31 | CON ---
Date of Consultation: 11/26/2024 Reason For Consultation: Right upper quadrant pain with sepsis and abnormal MRCP revealing stricture s in pancreatic duct. History Of Present Illness: The patient is a 69-year-old white male with history of hypertension, co ronary artery disease, status post MD, congestive heart failure, three-vessel CABG in April of this y ear, and kidney stones. The patient presented to the hospital with abdominal pain. The patient stat ed the pain initially was in the right and left lower quadrant, then moved to his right upper quadran t were it was approximately 10/10. Now with IV pain medications and IV fluids, the patient states hi s pain is down to none at rest. It is only some pain with movement or pressure on the right upper qu adrant area. Ultrasound of abdomen revealed gallbladder wall thickening. MRCP revealed gallbladder wall thickening, but also some strictures in the pancreatic duct. There was some question of sludge in the gallbladder on the ultrasound, which was not present on the MRCP. The patient is septic. Whi te count up to 20,000. With IV antibiotics, his white count came down to 16,000. The patient is sit ting in bed, currently in no acute distress. States that he is willing to proceed with cholecystecto my as indicated. Past Medical History: Significant for hypertension, coronary artery disease, status post myocardial infarction, 3-vessel CABG in April of this year, congestive heart failure, and kidney stones. Medications: At home, see list. Allergies: NKDA. Social History: , 3 children. No tobacco, quit in 2022. Alcohol, occasional beer, 1 another beverages he states, but not heavy use. Family History: Father of myocardial infarction with history of coronary disease. Mother of old age at age of 89. He reports that no of any disease she may have had. Review of Systems: The patient has started off having right and left lower quadrant pain, moved to the right upper quadr ant with 10/10, now down to 0 at rest. States it recurs if he moves or some of the pressure on the r ight upper quadrant area of his abdomen. He had some mild nausea and vomiting, is much better now in hospital. He denies any fever, chills, night sweats, muscle aches, joint aches, backache s, melena, hematochezia, , coffee-grounds emesis hemoptysis, hematuria, polyuria, polydipsi a. No chest pain, shortness of breath, seizure, syncope, muscle aches, joint aches, backaches, depre ssion, anxiety. Physical Examination: Vital signs: The patient is 6 feet, 284 pounds. BMI of 38.6 kg/sq m, temperature of 98.3 degrees Fa hrenheit, pulse 105, respirations 18, blood pressure 104/80, O2 saturation 91% and 93% on room air. General: He is obese male, lying in bed, in no acute distress currently. HEENT: Normocephalic, atraumatic. Anicteric. Pupils equal, round, and reactive to light. Anicteri c. Oropharynx is clear. Neck : Supple. No masses. Respirations: Clear to auscultation bilaterally. Cardiac: Regular rate and rhythm. Gastrointestinal: Positive bowel sounds. Soft, nondistended. Pain in the right upper quadrant area . No peritoneal Street signs. No rebound. This pain, it is hard to elicit pain right now. The pat ient states he feels much better. Extremities: No clubbing, cyanosis, or edema. 2+ pulses. Neuro: Alert and oriented x3. Grossly nonfocal. 5/5 motor strength, sensation is intact to light t ouch. Laboratory Data: The patient has a white count of 16.1 down from 20.6 on the 29th, hemoglobin of 12. 7, hematocrit of 39, MCV of 88, platelet count of 263, polys of 83%, lymphocytes 6%, monocytes 11%. PT of 14.8, INR of 1.32, PTT of 29.4. The patient has a sodium of 137, potassium 4.0, chloride 104, BUN of 8, creatinine of 1.2, glucose of 119, lactic acid of 1.2, calcium of 8.6, phosphorus of 3.1, m agnesium 1.9. Total bilirubin of 1.1, AST of 19, ALT of 25, alkaline phosphatase 78, total protein 6 .4, albumin 3.7 . Lipase of normal of 58 and a repeat of 39 and a repeat of 20, all normal. UA show some trace protein in urine, 1+ mucus, specific gravity greater than 1.030, indicative being somewha t dehydrated. Imaging: Ultrasound revealed thickened gallbladder wall thickening and sludge in gallbladder. MRCP revealed a thickened gallbladder wall, but no sludge in gallbladder, is consistent with possible chol ecystitis. Normal biliary tree. No stones or sludge in the biliary tree at all and there were sever al short segment strictures in the pancreatic duct. The patient has normal lipase as stated above, l ipase of 20 and the pain is probably from his gallbladder. Impression: 1. Acute cholecystitis with possible cholelithiasis though on final ultrasound, but not on MRCP, gall bladder wall thickening noted on the ultrasound and MRCP with elevated white count of 20,000, now nayla n to 16,000. IV antibiotics. Of note, his other liver tests are within normal limits. Alkaline alis sphatase 78, total bilirubin 1.1, AST of 19, ALT of 25. His right upper quadrant pain was maximum 10 /10, now down to 0 at rest, but elicited with pain on movement or pressure on the right upper quadran t. 2. Sepsis secondary to acute cholecystitis with white count of 16.1 down from 20 on admission, on IV antibiotics, polys still elevated at 83%. 3. The strictures in the pancreatic duct appeared to be asymptomatic. The patient does not have panc reatitis. Lipase is normal and imaging does not reveal any pancreatitis. Therefore, by definition, the patient does not have pancreatitis at this time. Right upper quadrant pain is secondary to his c holecystitis. MRCP revealed several short segment strictures in the pancreatic duct, but there was c lear gallbladder wall thickening consistent with cholecystitis and the bile duct wall was clear. No stones or sludge in the bile duct. 4. History of hypertension, coronary artery disease, status post MD and 3-vessel CABG in April of s year, congestive heart failure, and kidney stones. Recommendation: 1. Continue IV fluids, IV antibiotics. 2. Continue p.r.n. pain medications, antiemetics. 3. Laparoscopic cholecystectomy as per Surgery. 4. Outpatient evaluation of these asymptomatic pancreatic duct strictures at a tertiary center, but c urrently appear to be asymptomatic. 5. GI clinic followup. MONIE/SCOTTY Voice ID: [id number] Report ID: [id number]
--- NOTE | 2024-11-26 17:40 | CON ---
Date of Consultation: 11/26/2024 Brief History Of Present Illness: The patient is a 69-year-old man with past medical history of krzysztof nary artery disease, myocardial infarction, sleeve gastrectomy, status post triple bypass in February 2024, congestive heart failure. He came to the ER on 11/24/2024, with abdominal pain in the epigastr ic region with some radiation to the right, associated with greasy meals. He states the pain got pro gressively worse and as such he came to the emergency room with the above-stated complaints. He had some shortness of breath during his admission as well. He had a workup for this in addition. Past Medical History: Coronary artery disease, renal calculi, myocardial infarction, and congestive heart failure. Past Surgical History: Includes a triple coronary artery bypass in addition a sleeve peter rectomy over 10 years ago. Medications: He takes Plavix and aspirin, but has not taken so in at least 2 days. Social History: He states he has a positive tobacco use history in the past. Drinks alcohol recreat ionally. Denies any other recreational drug use. Review of Systems: Ten-point review of systems other than HPI, he had nausea, vomiting, and abdominal pain; however, thi s is resolved since his convalescence at the hospital. Physical Examination: General: He is awake, alert, and oriented. Psychiatric: Appropriate and conversive. HEENT: He is normocephalic. Sclerae anicteric. Mucous membranes are moist. Oropharynx is clear. Neck: Supple without JVD. Chest: Normal to expansion and excursion. Cardiovascular: Regular rate and rhythm. Pulmonary: Clear to auscultation bilaterally. Abdomen: Soft with positive right upper quadrant tenderness to palpation. Positive Street sign. Po sitive rebound. Positive guarding. Positive focal peritonitis in the right upper quadrant. Well-he aled surgical scars are evident from previous coronary artery surgery, with chest tube, abdominal inc isions noted. Extremities: No clubbing, cyanosis, or edema. Skin: Warm and dry. Laboratory Exam: Revealed a white blood count of 16.1, hemoglobin is 12.7, hematocrit 39.3, platelet count is 263. His PT 40.8, INR 1.3, PTT 29.4. His sodium is 137, potassium 4.0, chloride 104, carb on dioxide is 28, BUN is 8, creatinine 1.17, glucose was 119, total bilirubin was 1.1, AST 19, ALT 25 , alkaline phosphatase is 78, lipase is 20. UA was essentially negative. He had imaging performed, which included a MRI, which showed mildly thickened gallbladder wall, which may indicate cholecystiti s or pancreatitis. Biliary tree is unremarkable. Filling defect is not seen in the bilia ry tree. Gallbladder wall is mildly thickened as described. Several short segment strictures in the pancreatic duct noted. Ultrasound showed mildly thickened gallbladder wall, may be secondary to hyp oalbuminemia or acalculous cholecystitis. Oydk-on-ivyhpthx gallbladder sludge noted as well. Assessment And Plan: This is a 69-year-old male, who comes in with signs and symptoms of possible ch olecystitis. 1. IV fluid hydration. 2. Medical coverage. 3. I have explained the risks, benefits, and alternatives of laparoscopic possible open cholecystecto my including with ICG, indocyanine green cholangiography and possible contrast cholangiography, inclu ding but not limited to bleeding, infection, damage to surrounding tissue, need further operative pro cedures, injury to bile ducts, intestines, heart attack, blood clots, strokes and other unforeseen co mplications in the perioperative period. The patient displayed understanding of above stated plan and agrees to proceed as indicated. Thank you for this interesting consult. WILFREDO/SCOTTY Voice ID: [id number] Report ID: [id number]
--- NOTE | 2024-11-26 21:06 | OP ---
Date of Procedure: 11/26/2024 Surgeon: Stewart Peralta MD, Preoperative Diagnosis: Acute cholecystitis. Postoperative Diagnosis: Acute gangrenous cholecystitis. Procedure Performed: Laparoscopic cholecystectomy with indocyanine green cholangiography. Anesthesia: General endotracheal plus local with 1% lidocaine with epinephrine. Estimated Blood Loss: Less than 2 cc. Specimen: Gallbladder. Findings: Gangrenous encased gallbladder, severe inflammatory rind over the anterior surface, thicke ana cystic duct. Complications: None. Drains: 10 mm flat KELVIN drain. Implants: Thanh hemostatic powder. Disposition: The patient was transferred to recovery room in good condition. Procedure In Detail: After informed consent was obtained, the patient was brought to the operating r oom, prepped and draped in the usual sterile fashion after adequate anesthesia was achieved. I anest hetized an area in the supraumbilical position down to subcutaneous tissues. A 5-mm 0-degree optical trocar was introduced into the abdomen without incident or complication. Insufflation was obtained to 15 mmHg, at this time. No injury to vital structures upon entry into the abdomen. Three addition al trocars were placed, one in the epigastrium, one in the right upper quadrant, one in the right mid abdomen. All of these were 5 mm trocar was placed under direct vision without incident or complicat ion. The umbilical trocar was then upsized to a 12 mm under direct visualization without incident or complication. At this point, the patient was positioned head up right-side up position. Ratcheted grasper was used to grasp the patient's gallbladder which was unable to be grasped at this time. It was completely encased in omentum. This was taken down off the anterior surface to allow for visuali zation of the fundus of the gallbladder. At this point, a decompression needle was brought in to dec ompress the gallbladder to allow for manipulation of the gallbladder. At this point, the gallbladder was decompressed. It had a pus-like substance coming out of the gallbladder consistent with a signi ficant infection. At this point, the gallbladder was placed towards the patient's right shoulder wit h ratcheted graspers. I dissected down to the Rufino pouch of the gallbladder. There was a signif icant thick inflammatory rind over the anterior surface of the gallbladder as well as thickening of t he wall of the gallbladder making visualization difficult. The tissues were friable and oozing was a ppreciated throughout the entire procedure. After I visualized two structures identified both as cys tic duct and cystic artery, critical view of safety was obtained. At this point, I performed indocya nine green cholangiography which was minimally helpful at this point due to significant inflammation and difficulty in visualization of the green dye as it did not go into the gallbladder through the cy stic duct. However, I could see the cystic, common duct confluence which was far from the proposed t ransection point. However, the cystic duct had significant thickening consistent with severe inflamm ation and as the cystic duct did not fill, this was consistent with severe inflammatory change to the area. After double titanium clips were placed doubly on the proximal side, singly on the distal alma e of both cystic duct and cystic artery, the gallbladder was removed from the hepatic fossa without i ncident or complication. The gallbladder was then placed in an EndoCatch bag, removed from the umbil ical trocar site, sent off for pathologic examination. The area was copiously irrigated, at this poi nt. Due to the thickening of the cystic duct, I placed an additional Endoloop of 3-0 Vicryl between the two previously placed Endo clips. Indocyanine green cholangiography confirmed no leakage about t his point. I then irrigated the abdomen and suctioned it out until completely clear. All effluent was suctioned out, at this point. No additional hemostatic measures were required. At this point, I sprayed Thanh hemostatic powder into the subhepatic space as the patient did have some oozing from earlier. I then brought in a 10 mm flat KELVIN drain through the right inferior trocar site and placed i nto subhepatic space as well as secured to the skin using a 3-0 nylon suture. The area was inspected one last time. There was no additional hemostatic measures were required. There was no leakage abo ut the end of the procedure. At this point, I closed the 12 mm trocar site using a Denilson s uture passer with an 0 Vicryl in an interrupted fashion with good approximation of tissues. The abdo men was desufflated under direct visualization without incident or complication. Remainder of trocar s were removed. All skin incisions were then copiously irrigated and closed with 4-0 Monocryl in a r unning fashion. Dermabond was placed over top. The patient tolerated the procedure well without inc ident or complication and transferred to PACU in good condition. All counts were correct at the end of the case. WILFREDO/SCOTTY Voice ID: [id number] Report ID: [id number]
[2024-11-26] MEDS: HYDROCODONE/APAP 5/325 MG TAB PO PRN (21:15)
[2024-11-27 06:20] LABS: Absolute Lymphocytes (CBC) 0.6 K/uL (0.7-4.9); Hematocrit 38.9 % (39.6-49.0); Hemoglobin 13.3 g/dL (13.6-17.9); MCH 29.5 pg (27.0-35.0); MCHC 34.1 g/dL (32.0-36.0); MCV 86.6 fL (80-100); MPV 7.7 fL (7.6-11.3); Nucleated RBC Absolute Count 0.0 (0-0); Nucleated Red Blood Cells % 0.0 % (0-0); RBC Red Blood Cell Count 4.50 M/uL (4.33-5.43); White Blood Count 14.30 thou/uL (4.3-10.9)
[2024-11-27 06:36] LABS: Anion Gap 8.4 mEq/L (5.0-15.0); BUN Blood Urea Nitrogen 9.0 mg/dL (7-18); Glucose Level 147.0 mg/dL (74-106); Potassium 4.4 mEq/L (3.5-5.1)
[2024-11-27 06:37] LABS: ALT/SGPT 30.0 U/L (16-61); AST/SGOT 26.0 U/L (15-37); Albumin 2.5 g/dL (3.4-5.0); Albumin/Globulin Ratio 0.6 (1.1-1.8); Alkaline Phosphatase 78.0 U/L (45-117); Globulin 4.1 g/dL (2.3-3.5)
[2024-11-27] MEDS: ENOXAPARIN 40 MG/0.4 ML SQ SCH (08:25)
[2024-11-27] MEDS: MAGNES/ALUMIN/SIMET 30ML UCUP PO ONE (08:29)
[2024-11-27 09:38] LABS: Blood Morphology Comment NOT SEEN (NOT SEEN); White Blood Cell Scan OK (OK)
[2024-11-27] MEDS ORDERED: SODIUM CHLORIDE 0.9% 10ML INJ IV PRN (10:39)
[2024-11-27] MEDS: HYDROCODONE/APAP 10/325 TAB PO PRN (11:34)
[2024-11-27] MEDS: PANTOPRAZOLE 40 MG INJ IVP ONE (11:34)
[2024-11-27 16:25] VITALS: BP 134/82; TEMP 97.6
[2024-11-27] MEDS ORDERED: PANTOPRAZOLE 40 MG INJ IVP SCH (21:00)
== END 2024-11-27 16:14 | disposition home or self-care (01) | DRG 854 ==
LOC: ER 23:16 → ERHOLD 11-24 03:40 → 4TH 11-24 04:30 → OBSVTOIN 11-25 16:23
PROVIDERS: ADMIT Hospitalist; ATTEND Hospitalist
PROC: BF52200 Other Imaging of Gallbladder using Fluorescing Agent, Indocyanine Green Dye, Intraoperative (ICD-10-PCS; 2024-11-26)
PROC: 0FT44ZZ Resection of Gallbladder, Percutaneous Endoscopic Approach (ICD-10-PCS; principal; 2024-11-26 12:30)
DX: A41.9 Sepsis, unspecified organism (principal); K81.0 Acute cholecystitis; N17.9 Acute kidney failure, unspecified; E86.0 Dehydration; I10 Essential (primary) hypertension; E88.810 Metabolic syndrome; K82.A1 Gangrene of gallbladder in cholecystitis; I25.10 Atherosclerotic heart disease of native coronary artery without angina pectoris; I25.2 Old myocardial infarction; Z95.1 Presence of aortocoronary bypass graft; Z98.84 Bariatric surgery status; Z87.891 Personal history of nicotine dependence
CPT/HCPCS: 36415; 70450; 71275; 74175; 74181; 76705; 80053; 81001; 82565; 82947; 83605; 83690; 83735; 84100; 84484; 85025; 85610; 85730; 88304; 93005; 94010; 96374; 96375; 99285; G0378; J0360; J1100; J1171; J1644; J1650; J2003; J2250; J2405; J2470; J2543; J2550; J2704; J2710; J2765; J3010; J7030; J7120; Q9967